=== PATIENT | male | born 1945 | race Hispanic/Latino ===

== ENCOUNTER 2025-03-25 02:00 | Inpatient (IN) | payer OTHER ==
[2025-03-25] MEDS ORDERED: Acetaminophen 325 MG TAB PO PRN (04:56)
[2025-03-25] MEDS ORDERED: Ondansetron PF 4 MG/2 ML Vial IVP PRN (04:56)
[2025-03-25] MEDS ORDERED: Dextrose 50% Abboject 50 ML SYRINGE SLOW IVP PRN (04:58)
[2025-03-25] MEDS ORDERED: Octreotide Acetate 1,250 MCG in Sodium Chloride 0.9% 250 ML 250 ML IVPB SCH (05:15)
[2025-03-25 05:41] LABS: #Basophils 0.08 10x3/uL (0.0-0.2); #Eosinophils 0.25 10x3/uL (0.0-0.7); #Monocytes 0.49 10x3/uL (0.11-0.59); #Neutrophils 2.89 10x3/uL (1.40-6.50); %Basophils 1.6 % (0.0-1.0); %Eosinophils 5.1 % (0.0-10.0); %Lymphocytes 24.2 % (21.0-51.0); %Monocytes 10.0 % (0.0-10.0); %Neutrophils 58.9 % (42.0-75.0); Hematocrit 32.3 % (42.0-52.0); Hemoglobin 9.5 g/dL (14.0-18.0); Mean Corpuscular Hemoglobin 26.6 pg (27.0-31.0); Mean Corpuscular Volume 90.5 fL (78.0-98.0); Platelet Count 68 10x3/uL (130-400); Red Blood Cell (RBC) Count 3.57 mill/uL (4.70-6.10); White Blood Cell (WBC) Count 4.91 10x3/uL (4.8-10.8)
[2025-03-25 05:51] LABS: INR-International Normal Ratio 1.2; PTT 35.3 sec (22.9-36.1); Prothrombin Time 15.0 sec (12.0-14.7)
[2025-03-25 05:56] LABS: ALT (SGPT) 33 U/L (Less than 45); AST (SGOT) 46 U/L (11-34); Albumin 2.4 g/dL (3.1-4.5); Alkaline Phosphatase 266 U/L (40-110); Anion Gap 13 mmol/L (10-20); BUN (Urea Nitrogen) 32 mg/dL (8.4-25.7); Bilirubin, Total 0.8 mg/dL (0.3-1.2); Calc. Creatinine Clearance 0 mL/min (70-130); Calcium 8.5 mg/dL (7.8-10.44); Carbon Dioxide 20 mmol/L (23-31); Chloride 111 mmol/L (98-107); Globulin 3.3 g/dL (2.4-3.5); Glucose 328 mg/dL (83-110); Potassium 4.9 mmol/L (3.5-5.1); Sodium 139 mmol/L (136-145)
[2025-03-25 06:29] VITALS: BMI 25.1
[2025-03-25] MEDS: Albumin 25% 25 GM (100 mL) BOT IVPB SCH (07:39)
[2025-03-25] MEDS ORDERED: Famotidine/PF 20 mg/2ml Vial ONE (10:19)
[2025-03-25] MEDS ORDERED: PROPOFOL 20 ML ONE (10:35)
[2025-03-25] MEDS ORDERED: Rocuronium Bromide 10 MG/ML (10ML VIAL) ONE (11:03)
[2025-03-25] MEDS ORDERED: SUCCINYLCHOLINE/SOD CL,ISO/PF 200 MG/10 ML SYRINGE FS ONE (11:03)
[2025-03-25] MEDS ORDERED: Lidocaine 1% PF 5 ML VIAL ONE (11:03)
[2025-03-25] MEDS ORDERED: GLYCOPYRROLATE/PF 0.2 MG/ML VIAL ONE (11:24)
[2025-03-25] MEDS ORDERED: NEOSTIGMINE 3 MG/3 ML SYRINGE ONE (11:24)
[2025-03-25] MEDS: Pantoprazole 40 MG VIAL IVP SCH (18:09)
[2025-03-26] MEDS: cefTRIAXone\\ROCEPHIN 1 GM in Sodium Chloride 0.9% 100 ML IVPB SCH (01:48)
[2025-03-26 08:51] LABS: #Basophils 0.13 10x3/uL (0.0-0.2); #Eosinophils 0.54 10x3/uL (0.0-0.7); #Monocytes 0.41 10x3/uL (0.11-0.59); #Neutrophils 2.39 10x3/uL (1.40-6.50); %Basophils 2.6 % (0.0-1.0); %Eosinophils 10.9 % (0.0-10.0); %Lymphocytes 30.0 % (21.0-51.0); %Monocytes 8.2 % (0.0-10.0); %Neutrophils 48.1 % (42.0-75.0); Hematocrit 31.4 % (42.0-52.0); Hemoglobin 9.4 g/dL (14.0-18.0); Mean Corpuscular Hemoglobin 26.6 pg (27.0-31.0); Mean Corpuscular Volume 89.0 fL (78.0-98.0); Platelet Count 85 10x3/uL (130-400); Red Blood Cell (RBC) Count 3.53 mill/uL (4.70-6.10); White Blood Cell (WBC) Count 4.97 10x3/uL (4.8-10.8)
[2025-03-26 08:55] LABS: ALT (SGPT) 30 U/L (Less than 45); AST (SGOT) 39 U/L (11-34); Albumin 2.9 g/dL (3.1-4.5); Alkaline Phosphatase 229 U/L (40-110); Anion Gap 12 mmol/L (10-20); BUN (Urea Nitrogen) 26 mg/dL (8.4-25.7); Bilirubin, Total 1.1 mg/dL (0.3-1.2); Calc. Creatinine Clearance 47 mL/min (70-130); Calcium 8.8 mg/dL (7.8-10.44); Carbon Dioxide 22 mmol/L (23-31); Chloride 108 mmol/L (98-107); Globulin 3.0 g/dL (2.4-3.5); Glucose 220 mg/dL (83-110); Iron 64 ug/dL (65-175); Iron Binding Capacity, Total 293 mcg/dL (261-462); Potassium 4.4 mmol/L (3.5-5.1); Sodium 138 mmol/L (136-145)
[2025-03-26 09:49] LABS: Hep A IgM AB NONREACTIVE (NonReactive); Hep A IgM S/CO 0.39 S/CO (0-0.79); Hep B Core IgM Index 0.08 S/CO (0-0.79); Hep B Surf Ag NONREACTIVE S/CO (NonReactive); Hep C IgG Ab NONREACTIVE S/CO (NonReactive); Hep C Index 0.06 S/CO (0-0.79)
[2025-03-26 10:33] LABS: Ferritin 41.16 ng/mL (22-322)
[2025-03-26] MEDS: Ipratropium Bromide 2.5 ml Neb NEB SCH (19:10)
[2025-03-27 04:41] LABS: #Basophils 0.08 10x3/uL (0.0-0.2); #Eosinophils 0.48 10x3/uL (0.0-0.7); #Monocytes 0.43 10x3/uL (0.11-0.59); #Neutrophils 1.63 10x3/uL (1.40-6.50); %Basophils 2.1 % (0.0-1.0); %Eosinophils 12.3 % (0.0-10.0); %Lymphocytes 32.6 % (21.0-51.0); %Monocytes 11.0 % (0.0-10.0); %Neutrophils 41.7 % (42.0-75.0); Hematocrit 26.1 % (42.0-52.0); Hemoglobin 8.1 g/dL (14.0-18.0); Mean Corpuscular Hemoglobin 27.3 pg (27.0-31.0); Mean Corpuscular Volume 87.9 fL (78.0-98.0); Platelet Count 70 10x3/uL (130-400); Red Blood Cell (RBC) Count 2.97 mill/uL (4.70-6.10); White Blood Cell (WBC) Count 3.90 10x3/uL (4.8-10.8)
[2025-03-27 04:52] LABS: ALT (SGPT) 24 U/L (Less than 45); AST (SGOT) 31 U/L (11-34); Albumin 2.4 g/dL (3.1-4.5); Alkaline Phosphatase 183 U/L (40-110); Anion Gap 10 mmol/L (10-20); BUN (Urea Nitrogen) 21 mg/dL (8.4-25.7); Bilirubin, Total 0.8 mg/dL (0.3-1.2); Calc. Creatinine Clearance 53 mL/min (70-130); Calcium 8.3 mg/dL (7.8-10.44); Carbon Dioxide 21 mmol/L (23-31); Chloride 110 mmol/L (98-107); Globulin 2.6 g/dL (2.4-3.5); Glucose 195 mg/dL (83-110); Potassium 4.0 mmol/L (3.5-5.1); Sodium 137 mmol/L (136-145)
[2025-03-27] MEDS: Levothyroxine 150 MCG TAB PO SCH (06:33)
[2025-03-27] MEDS ORDERED: Lidocaine 1% PF 5 ML VIAL ONE (08:32)
[2025-03-27] MEDS ORDERED: Sodium Bicarbonate 2.5 MEQ/5 ML SDV ONE (08:32)
[2025-03-28 04:08] LABS: #Basophils 0.06 10x3/uL (0.0-0.2); #Eosinophils 0.36 10x3/uL (0.0-0.7); #Monocytes 0.36 10x3/uL (0.11-0.59); #Neutrophils 1.11 10x3/uL (1.40-6.50); %Basophils 1.8 % (0.0-1.0); %Eosinophils 11.0 % (0.0-10.0); %Lymphocytes 42.4 % (21.0-51.0); %Monocytes 11.0 % (0.0-10.0); %Neutrophils 33.8 % (42.0-75.0); Hematocrit 24.5 % (42.0-52.0); Hemoglobin 7.5 g/dL (14.0-18.0); Mean Corpuscular Hemoglobin 27.5 pg (27.0-31.0); Mean Corpuscular Volume 89.7 fL (78.0-98.0); Platelet Count 70 10x3/uL (130-400); Red Blood Cell (RBC) Count 2.73 mill/uL (4.70-6.10); White Blood Cell (WBC) Count 3.28 10x3/uL (4.8-10.8)
[2025-03-28 04:18] LABS: ALT (SGPT) 23 U/L (Less than 45); AST (SGOT) 37 U/L (11-34); Albumin 2.4 g/dL (3.1-4.5); Alkaline Phosphatase 217 U/L (40-110); Anion Gap 11 mmol/L (10-20); BUN (Urea Nitrogen) 17 mg/dL (8.4-25.7); Bilirubin, Total 0.6 mg/dL (0.3-1.2); Calc. Creatinine Clearance 52 mL/min (70-130); Calcium 8.3 mg/dL (7.8-10.44); Carbon Dioxide 23 mmol/L (23-31); Chloride 108 mmol/L (98-107); Globulin 2.5 g/dL (2.4-3.5); Glucose 305 mg/dL (83-110); Potassium 3.9 mmol/L (3.5-5.1); Sodium 138 mmol/L (136-145)
[2025-03-28] MEDS: FLU (Fluad Triv) 25-26 (65UP)PF 45 MCG/0.5 ML Syringe IM ONE (09:45)
[2025-03-28 11:40] LABS: ANA Symphony (Qualitative) Negative (Negative); ANA Symphony (Quantitative) 0.2 Ratio (< 0.7 Negative); EliA Vaculitis New Method **** NEW METHOD ****; Mitochondrial Ab 1.0 U/mL (<4 Negative); dsDNA IgG Antibody 1.7 IU/mL (<10 Negative)
[2025-03-28 18:14] LABS: Smooth Muscle Total ABS 10.0 Units (0-19)
[2025-03-29 16:53] LABS: Hematocrit 27.3 % (42.0-52.0); Hemoglobin 8.1 g/dL (14.0-18.0)
[2025-03-29] MEDS: cefTRIAXone\\ROCEPHIN 1 GM in Sodium Chloride 0.9% 100 ML IVPB SCH (22:00)
[2025-03-30 04:32] LABS: #Basophils 0.06 10x3/uL (0.0-0.2); #Eosinophils 0.40 10x3/uL (0.0-0.7); #Monocytes 0.40 10x3/uL (0.11-0.59); #Neutrophils 1.66 10x3/uL (1.40-6.50); %Basophils 1.7 % (0.0-1.0); %Eosinophils 11.4 % (0.0-10.0); %Lymphocytes 28.1 % (21.0-51.0); %Monocytes 11.4 % (0.0-10.0); %Neutrophils 47.1 % (42.0-75.0); Hematocrit 26.0 % (42.0-52.0); Hemoglobin 7.8 g/dL (14.0-18.0); Mean Corpuscular Hemoglobin 27.3 pg (27.0-31.0); Mean Corpuscular Volume 90.9 fL (78.0-98.0); Platelet Count 74 10x3/uL (130-400); Red Blood Cell (RBC) Count 2.86 mill/uL (4.70-6.10); White Blood Cell (WBC) Count 3.52 10x3/uL (4.8-10.8)
[2025-03-30 04:45] LABS: Anion Gap 12 mmol/L (10-20); BUN (Urea Nitrogen) 16 mg/dL (8.4-25.7); Calc. Creatinine Clearance 46 mL/min (70-130); Calcium 8.3 mg/dL (7.8-10.44); Carbon Dioxide 23 mmol/L (23-31); Chloride 108 mmol/L (98-107); Glucose 233 mg/dL (83-110); Potassium 4.4 mmol/L (3.5-5.1); Sodium 139 mmol/L (136-145)
[2025-03-30 21:07] VITALS: BP 122/66; TEMP 99
== END 2025-03-30 23:36 | DRG 369 ==
LOC: EEVIPCON 03:58 → PCU 03:58
PROVIDERS: ADMIT Internal Medicine; ATTEND Internal Medicine
PROC: 0DJ08ZZ Inspection of Upper Intestinal Tract, Via Natural or Artificial Opening Endoscopic (ICD-10-PCS; principal; 2025-03-25)
PROC: 30233J1 Transfusion of Nonautologous Serum Albumin into Peripheral Vein, Percutaneous Approach (ICD-10-PCS; 2025-03-25)
PROC: 3E03329 Introduction of Other Anti-infective into Peripheral Vein, Percutaneous Approach (ICD-10-PCS; 2025-03-26)
PROC: 3E02340 Introduction of Influenza Vaccine into Muscle, Percutaneous Approach (ICD-10-PCS; 2025-03-28)
PROC: 30233N1 Transfusion of Nonautologous Red Blood Cells into Peripheral Vein, Percutaneous Approach (ICD-10-PCS; 2025-03-29)
DX: K22.6 Gastro-esophageal laceration-hemorrhage syndrome (principal); D61.818 Other pancytopenia; E87.20 Acidosis, unspecified; I44.2 Atrioventricular block, complete; D62 Acute posthemorrhagic anemia; R18.8 Other ascites; N40.0 Benign prostatic hyperplasia without lower urinary tract symptoms; Z51.5 Encounter for palliative care; J44.9 Chronic obstructive pulmonary disease, unspecified; Z23 Encounter for immunization; E11.22 Type 2 diabetes mellitus with diabetic chronic kidney disease; N18.9 Chronic kidney disease, unspecified; E03.9 Hypothyroidism, unspecified; E78.5 Hyperlipidemia, unspecified; K74.60 Unspecified cirrhosis of liver; K25.9 Gastric ulcer, unspecified as acute or chronic, without hemorrhage or perforation; I85.00 Esophageal varices without bleeding; K21.00 Gastro-esophageal reflux disease with esophagitis, without bleeding; Z79.899 Other long term (current) drug therapy; I85.10 Secondary esophageal varices without bleeding; K31.7 Polyp of stomach and duodenum; K21.9 Gastro-esophageal reflux disease without esophagitis; Z87.891 Personal history of nicotine dependence; D69.59 Other secondary thrombocytopenia; D63.1 Anemia in chronic kidney disease; Z79.890 Hormone replacement therapy; Z79.4 Long term (current) use of insulin; Z79.82 Long term (current) use of aspirin
CPT/HCPCS: 36415; 36416; 36430; 76705; 80048; 80053; 80074; 82105; 82140; 82390; 82728; 83516; 83540; 83550; 83605; 83690; 83880; 84443; 84484; 85014; 85018; 85025; 85610; 85730; 86015; 86038; 86225; 86850; 86900; 86901; 93005; 93010; 93306; 96365; 96375; 96376; J0696; J1308; J1815; J2354; J2470; J2704; J3490; J7050; P9016; P9047